=== PATIENT | female | born 1965 | race Two or more races ===

== ENCOUNTER 2016-10-17 06:01 | Inpatient (IN) | payer OTHER ==
[2016-10-17] VITALS (7 sets, daily range): BP systolic 98–121; BP diastolic 56–73
[~2016-10-17] VITALS: Ht 172.7 cm; Wt 72.6 kg
[2016-10-17] MEDS ORDERED: CEFAZOLIN SODIUM/DEXTROSE,ISO 50 ML IV ONE (06:24)
[2016-10-17] MEDS ORDERED: IV LR 1000 ML 1,000 ML ONE (06:25)
[2016-10-17] MEDS ORDERED: SECONDARY IV SET 1 EA INFUS.SET MC ONE (06:25)
[2016-10-17] MEDS ORDERED: NEEDLELESS EST SET LARGE BORE 1 EA INFUS.SET MC ONE (06:25)
[2016-10-17] MEDS ORDERED: IV SET PRIMARY 1 EA INFUS.SET MC ONE (06:25)
[2016-10-17] MEDS ORDERED: LIDOCAINE HCL/PF 1% 30 ML SDV ONE (07:13)
[2016-10-17] MEDS ORDERED: EPINEPHRINE (1:1000) MDV 30 MG/30ML VIAL ONE (07:13)
[2016-10-17] MEDS ORDERED: MIDAZOLAM HCL 2 MG/2ML VIAL ONE (08:33)
[2016-10-17] MEDS ORDERED: BUPIVACAINE MPF 0.5% W/EPI INJ 30 ML VIAL ONE (08:34)
[2016-10-17] MEDS ORDERED: HYDROMORPHONE 1 MG/1 ML DISP.SYRIN ONE (09:55)
--- NOTE | 2016-10-17 10:15 | NUR ---
MS CHOCOLATE MAKER NOTES Admitted a 51 years old female patient from day surgery. Alert and oriented x 4, verbally responsive and able to make needs known. IV on the left hand #20 with LR infusing well. S/P right shoulder surgery. Looks comfortable at this time. Faxed all orders to the pharmacy and made aware. On 02 @ 2lpm via NC and tolerated well. No SOB or distress noted. Kept patient clean and comfortable in bed, call light with in patient reach, will continue to monitor accordingly.
[2016-10-17] MEDS ORDERED: TYLENOL 650 MG TABLET PO PRN (11:00)
[2016-10-17] MEDS ORDERED: COLACE 250 MG CAPSULE PO PRN (11:00)
[2016-10-17] MEDS ORDERED: SENOKOT 8.6 MG TABLET PO PRN (11:00)
[2016-10-17] MEDS ORDERED: DULCOLAX 10 MG/SUPP.RECT RC PRN (11:00)
[2016-10-17] MEDS ORDERED: HYDROCODONE/APAP 5/325MG 1 EACH TABLET PO PRN (11:00)
[2016-10-17] MEDS ORDERED: AMBIEN 5 MG TABLET PO PRN (11:00)
[2016-10-17] MEDS ORDERED: IV SET PRIMARY PUMP SET 1 EA INFUS.SET MC ONE (13:56)
[2016-10-17] MEDS: IV D5/0.45 NACL 1,000 ML IV PRN (14:02)
--- NOTE | 2016-10-17 17:22 | NUR ---
ms rn notes Dr De La Cruz came seen and examined the patient and ordered Zoloft 200 mg 1 tab PO Qhs. All orders carried out and noted. Will continue to monitor accordingly.
[2016-10-17] MEDS: HYDROCODONE/APAP 10/325MG 1 EA TABLET PO PRN (18:26)
--- NOTE | 2016-10-17 19:12 | NUR ---
ms rn closing notes All needs provided, attended, and anticipated. Kept patient clean and comfortable in bed, call light with in patient reach, will continue to monitor accordingly. Endorsed to next shift RN to continue care.
--- NOTE | 2016-10-17 19:45 | NUR ---
RN OPEN NOTES RECEIVED PATIENT AWAKE IN BED. A/O X4. NO SIGNS OF REDNESS OR INFILTRATION. BREATHING EVEN AND UNLABORED. IV ACCESS IN L HAND WITH D51/2NS INFUSING. STATES PAIN IS 6/10 BUT TOLERABLE, PATIENT WAS GIVEN NORCO AT 1830 BY AM SHIFT. BED IN LOW LOCKED POSITION. WITH SIDE RAILS X2. CALL LIGHT WITHIN REACH. WILL CONTINUE TO MONITOR.
[2016-10-17] MEDS: SERTRALINE HCL 50 MG TABLET PO SCH (21:29)
--- NOTE | 2016-10-17 21:35 | NUR ---
RN NOTES ADMINISTERED AMBIEN 5MG FOR INSOMNIA ORDERED BY PATIENT REQUEST. WILL CONTINUE TO MONITOR.
[2016-10-18] MEDS: HYDROCODONE/APAP 10/325MG 1 EA TABLET PO PRN ×3 (00:19→11:55)
[2016-10-18] MEDS: IV D5/0.45 NACL 1,000 ML IV PRN ×2 (00:21→11:03)
--- NOTE | 2016-10-18 06:30 | NUR ---
RN NOTES ADMINISTERED NORCO 10/325 ORDERED FOR PAIN 6/10 IN RIGHT SHOULDER. WILL CONTINUE TO MONITOR.
--- NOTE | 2016-10-18 06:58 | NUR ---
RN CLOSING NOTES PATIENT AWAKE IN BED. A/O X4. NO SIGNS OF REDNESS OR INFILTRATION. BREATHING EVEN AND UNLABORED. IV ACCESS IN L HAND WITH D5 1/2NS INFUSING. STATES PAIN IS TOLERABLE AT THIS TIME 09/02. NO SIGNIFICANT CHANGES THROUGH THE NIGHT. ALL NEEDS MET. BED IN LOW LOCKED POSITION. WITH SIDE RAILS X2. CALL LIGHT WITHIN REACH. WILL ENDORSE TO AM SHIFT FOR LUPILLO.
--- NOTE | 2016-10-18 07:15 | NUR ---
RN MS OPENING NOTES RECEIVED PATIENT AWAKE IN BED, HEAD OF BED ELEVATED, NO SOB OR DISTRESS NOTED. A/O X4. IN INTACT AND PATENT WITHOUT INFILTRATION. STATES PAIN IS 6/10 IN LOWER BACK AND MANDIBLE. BED IN LOW LOCKED POSITION. WITH SIDE RAILS X2. CALL LIGHT WITHIN REACH. WILL CONTINUE TO MONITOR ACCORDINGLY.
[2016-10-18 08:00] VITALS: BP_SYST 114; BP_SYST 127; BP_DIAS 68; BP_DIAS 76
[2016-10-18] MEDS: SERTRALINE HCL 50 MG TABLET PO SCH (08:40)
[2016-10-18] MEDS ORDERED: HYDR-552 PO (09:41)
[2016-10-18] MEDS ORDERED: SERT100T PO (09:41)
[2016-10-18 10:16] VITALS: BP 114/76
--- NOTE | 2016-10-18 13:22 | NUR ---
ms rn notes Carmelo [employer] came seen and examined the patient and ordered Fleet enema. All orders carried out and noted. Will continue to monitor accordingly.
[2016-10-18] MEDS ORDERED: NA PHOS,M-B/NA PHOS,DI-BA 1 EA ENEMA RC PRN (13:30)
[2016-10-18 16:00] VITALS: BP 124/78
--- NOTE | 2016-10-18 16:36 | NUR ---
RN MS DISCHARGE NOTES Discharge instructions given to patient and able to understand instructions and signed discharge paper and belongings list. Flu and pneumonia vaccines not given. Patient <65, not applicable to get pneumonia vaccine and flu is out of season. [facility] and he was accompanied with the nurse Lucio Negron in stable condition. Skin intact, heplock removed. No SOB, or distress noted. Vitals signs checked and recorded. MD and nurse aware.
== END 2016-10-18 16:25 | disposition home or self-care (01) | DRG 512 ==
LOC: DS 06:01 → MED 09:35
DX: M75.41 Impingement syndrome of right shoulder (principal); M65.9 Synovitis and tenosynovitis, unspecified; Z88.1 Allergy status to other antibiotic agents; Z88.5 Allergy status to narcotic agent; Z88.2 Allergy status to sulfonamides; F32.9 Major depressive disorder, single episode, unspecified
CPT/HCPCS: 87081-TC; 88304-TC; 88305-TC; 88311-TC; J0171; J0690; J1170; J2250; J3490; J7120; Z7610